=== PATIENT | female | born 1995 | race Two or more races ===

== ENCOUNTER 2020-05-09 09:11 | Outpatient (CLI) | payer OTHER ==
--- NOTE | 2020-05-09 16:52 | MRI Report ---
PROCEDURE: Pelvis W/O INDICATIONS: MYALGIA TECHNIQUE: Noncontrast coronal T1 spin echo and STIR through the bony pelvis. Sagittal T2 FSE with fat saturati on, oblique axial PD FSE and T2 FSE with fat saturation through the symphysis pubis. COMPARISON: None. FINDINGS: Image quality: Excellent. Tendons and muscles: The attachments of the rectus abdominis and adductor longus muscles anterior to the pubic bodies appear intact bilaterally. The intervening common aponeurosis demonstrates normal morphology and signal. More inferiorly, the adductor longus musculotendinous junctions appear normal , without tendinopathy or tears. More inferior images demonstrate no fascial herniations of the addu ctor longus muscle fibers. Bony structures: No focal bone marrow edema around the symphysis pubis. No productive or erosive krista ny changes to suggest osteitis pubis. No stress fractures. No suspicious marrow space occupying les ions. Other tendons: The gluteus medius and minimus tendons appear intact, without associated muscle atrop hy. The iliopsoas tendon appears intact, without adjacent bursal fluid collections. The origin of t he hamstring tendons are intact at the ischial tuberosities. Hip joints: Larger field of view images demonstrate no avascular necrosis of the femoral heads. The acetabular labrum appears intact in the absence of intra-articular contrast. Soft tissues: Immediately lateral to the rectus abdominis tendon fibers, the superficial rings of th e inguinal canals demonstrate no hernias. The proximal sciatic neurovascular bundles appear normal a djacent to the hamstring tendons. No free pelvic fluid. Bladder wall thickness is normal. Genitour inary structures and bowel loops appear normal where visualized. IMPRESSION: 1. No marrow signal abnormality. No fracture or dislocation. No evidence of avascular necrosis of fem oral head. No suspicious intraosseous lesion. 2. No muscle or tendon signal abnormality. No pelvic free fluid of free air. No finding to explain pa deannt's symptoms. Reviewed by: Jose Rogel MD on 05/09/2020 4:51 PM PST Approved by: Jose Rogel MD on 05/09/2020 4:51 PM PST Station ID: [id number]
== END 2020-05-09 09:12 | disposition home or self-care (01) ==
LOC: DI 09:11
DX: M79.18 Myalgia, other site (principal)
CPT/HCPCS: 72195